=== PATIENT | female | born 1990 | race Caucasian/White ===

== ENCOUNTER 2020-11-19 15:30 | Emergency (ER) | payer OTHER, SELFPAY ==
[2020-11-19 15:38] VITALS: BP 132/79; PULSE 103; RESP 16; TEMP 36.7; O2SAT 98
--- NOTE | 2020-11-19 16:09 | ED.SKABFB ---
HPI - Skin/Abscess/Foreign Bdy General Chief complaint: Skin/Abscess/Foreign Body Stated complaint: abcess left leg and asthma issues Time Seen by Provider: 11/19/20 15:55 Source: patient Mode of arrival: ambulatory Limitations: no limitations History of Present Illness HPI narrative: Lesa Hou is a 30 yo female with a PMH of schizoaffective disorder and both heroin and methamphetamine drug addiction who comes to [facility] with an abscess on her left lower extremity lateral side abscess that has drained but still is indurated and painful. She states that she developed the abscess almost a week after last injection, drained but has not improved, and her feet hurt she has 2+ bilateral edema Related Data Home Medications Medication Instructions Recorded Confirmed cariprazine [Vraylar] 6 mg PO DAILY 11/19/20 11/19/20 Allergies Allergy/AdvReac Type Severity Reaction Status Date / Time No Known Allergies Allergy Verified 11/19/20 15:52 Review of Systems Review of Systems: Narrative: CONSTITUTIONAL: Denies fever, chills, sweats. EYES: Denies visual changes, redness, discharge. ENT: Denies rhinorrhea, congestion, sore throat, otalgia. CARDIOVASCULAR: Denies chest pain, palpitations, edema. RESPIRATORY: Denies dyspnea, wheezing, cough GASTROINTESTINAL: Denies abdominal pain, nausea, vomiting, diarrhea. GENITOURINARY: Denies dysuria, hematuria, abnormal discharge SKIN: Denies rash or itching. Multiple bruises and needle perez on bilateral legs top of feet antecubital area of both arms down the forearms back of hands, abscess on next lateral left lower extremity CONSTITUTIONAL: Denies fever, chills, sweats. EYES: Denies visual changes, redness, discharge. ENT: Denies rhinorrhea, congestion, sore throat, otalgia. CARDIOVASCULAR: Denies chest pain, palpitations, edema. RESPIRATORY: Denies dyspnea, wheezing, cough GASTROINTESTINAL: Denies abdominal pain, nausea, vomiting, diarrhea. GENITOURINARY: Denies dysuria, hematuria, abnormal discharge SKIN: Denies rash or itching. NEUROLOGIC: Denies numbness, or focal weakness. PSYCHIATRIC: Denies anxiety or depression. NEUROLOGIC: Denies numbness, or focal weakness. PSYCHIATRIC: Denies anxiety or depression. [facility] Past Medical History Medical History Asthma Drug addiction Schizoaffective disorder Family History Family History (Updated 11/19/20 @ 16:17 by Laney Martinez CNP) Other Hypertension Social History Social History (Updated 11/19/20 @ 16:17 by Laney Martinez CNP) Smoking packs per day: 0.5 Smoking cigarettes per day: 10.0 Smoking status: Current every day smoker Alcohol intake: never Substance use: current Substance use type: marijuana, heroin and amphetamines Comments At time of signature, I agree with nursing past medical, surgical, social and family history. There is no relevant family history pertinent to the presenting complaint. Exam Narrative: Exam Narrative: GENERAL: This is a well-nourished, well-developed patient, in mild distress. HEAD: normocephalic, atraumatic. EYES: PERRL. Sclera clear/white. Vision is grossly intact. EARS: External ears normal, auditory canals clear and without drainage, TMs normal without perforation. Hearing grossly intact. NOSE: External nose normal without nasal discharge, nares without redness, no rhinorrhea. THROAT: Mucous membranes moist, posterior pharynx NECK: Neck supple, non-tender CARDIOVASCULAR: Regular rate and rhythm without murmurs, gallops, or rubs. RESPIRATORY: Clear to auscultation. Breath sounds equal bilaterally. No wheezes, rales, or rhonchi. GASTROINTESTINAL: Abdomen soft, non-tender, SKIN: warm, intact with abscess on left lateral part lower leg, many track perez on both legs tops of both feet both antecubital area both forearms back of hands hands are puffy ankles are 2+ edema bilaterally; the abscess itself is been draining and
[2020-11-19] MEDS: LIDOCAINE HCL 1% LOCAL INJ 20 ML VIAL 2.1 ML IM (16:17)
[2020-11-19] MEDS: cefTRIAXone 1 GM VIAL IM (16:18)
== END 2020-11-19 16:40 | disposition home or self-care (01) ==
PROVIDERS: Emergency Provider Nurse Practitioner
DX: L02.416 Cutaneous abscess of left lower limb (principal); J45.20 Mild intermittent asthma, uncomplicated; F17.210 Nicotine dependence, cigarettes, uncomplicated; F20.9 Schizophrenia, unspecified
CPT/HCPCS: 96372; 99203; G0463; J0696

== ENCOUNTER 2022-01-06 08:54 | Emergency (ER) | payer OTHER, SELFPAY ==
[2022-01-06 08:59] VITALS: BP 136/85; PULSE 93; RESP 18; TEMP 36.4; O2SAT 100
--- NOTE | 2022-01-06 09:04 | ED.URI ---
HPI - URI/Sore Throat General Chief Complaint: Shortness of Breath/Dyspnea Stated Complaint: Shortness of Breath Time Seen by Provider: 01/06/22 09:08 Source: patient, RN notes reviewed and old records reviewed Mode of arrival: ambulatory Limitations: no limitations History of Present Illness HPI Narrative: 31-year-old female presents to the [facility] with complaints of shortness of breath yesterday. Patient reports a history of chronic bronchitis. Has an albuterol but has not used it. No symptoms today. Patient is a current smoker MD elicited complaint: cough Onset (ago): day(s) (1-2) Related Data Home Medications Medication Instructions Recorded Confirmed cariprazine 6 mg capsule (Vraylar) 6 mg PO DAILY 11/19/20 11/19/20 Allergies Allergy/AdvReac Type Severity Reaction Status Date / Time No Known Allergies Allergy Verified 11/19/20 15:52 Review of Systems Review of Systems: All systems reviewed & are unremarkable except as noted in HPI and below Constitutional: Constitutional: Reports no additional constitutional complaints, Denies chills and Denies fever(s) Eyes: Eyes: Reports no additional eye complaints ENT: Reports system reviewed and no additional complaints, except as documented Cardiovascular: Cardiovascular: Reports as per HPI and Reports chest pain (Chest) Respiratory: Respiratory: Reports as per HPI and Reports cough Gastrointestinal: Gastrointestinal: Reports no additional gastrointestinal complaints Musculoskeletal: Musculoskeletal: Reports no additional musculoskeletal complaints Integumentary/Breasts: Skin/Breast: Reports system reviewed and no additional complaints, except as docu Neurologic: Reports system reviewed and no additional complaints, except as documented Psychiatric: Psychiatric: Reports no additional psychiatric complaints Allergic/Immunologic: Allergic/Immunologic: Reports no additional allergic/immunologic complaints [facility] Past Medical History Medical History Asthma Drug addiction Schizoaffective disorder Family History Family History Other Hypertension Social History Social History Smoking packs per day: 0.5 Smoking cigarettes per day: 10.0 Smoking status: Current every day smoker Alcohol intake: never Substance use: current Substance use type: marijuana, heroin and amphetamines Comments At the time of my signature, I reviewed and agree with the nursing past medical, surgical, social, and family history. There is no relevant family history pertinent to the patient complaint. Exam Const: General: healthy appearing, no acute distress and alert Nutritional Appearance: well nourished Orientation/consciousness: patient oriented x3 Limitations: no limitations HENMT: Head: normal to inspection Ears: external ears normal, TM's normal bilaterally and EAC's normal Face and sinus: normal facial exam Mouth: Yes Normal oral and palatal mucosa present, Yes lip normal and Yes moist mucous membranes Throat: posterior oropharynx normal and uvula midline Eyes: General: appearance normal, both eyes and all related structures Pupils: Equal, round and reactive pupils present Neck: Neck: normal visual inspection, no lymphadenopathy and no meningeal signs Chest: Chest palpation & inspection: normal inspection of the chest Resp: Effort & Inspection: normal respiratory effort and no use of accessory muscles Auscultation: clear to auscultation bilaterally, no crackles, no rales, no rhonchi and no wheezes Cardio: Rate: regular rate Rhythm: regular rhythm Back/Spine/Pelvis: Cervical Spine: normal cervical lordosis Thoracic/Lumbar Spine: thoracic and lumbar spine normal to inspection Skin: General skin exam: normal color Rashes: no rashes Wounds: no wounds Neuro: General: patient
== END 2022-01-06 09:24 | disposition home or self-care (01) ==
PROVIDERS: Emergency Provider Nurse Practitioner
DX: R06.02 Shortness of breath (principal); F17.210 Nicotine dependence, cigarettes, uncomplicated; J45.909 Unspecified asthma, uncomplicated
CPT/HCPCS: 99213; G0463

== ENCOUNTER 2024-12-16 15:55 | Emergency (ER) | payer OTHER, SELFPAY ==
--- OUTSIDE RECORDS SUMMARY | 2024-12-16 15:58 | XMS_ITS ---
Author Organization Formerly [facility] Address [address] [place] [address] Care Team Providers Care Orientation & Mobility Specialist Name Role Phone Tien Johns Primary Care Provider Jennie Nunez Unavailable Norberto Meadows Unavailable [phone] REASON FOR VISIT Psych Evaluation Social History Sex Assigned At : Social History Observation Description Sex Assigned At Female Encounters Encounter Location Date Provider Diagnosis [address] [id number] 07/31/2024 Norberto Meadows Plan Of Treatment No Information Progress Notes * Lesa HOU JDOB:1990 (34 yo F)Acc No.[id number]:07/31/2024 UNLOCKED PROGRESS NOTE Patient: Lesa DENNEY Provider: Xavier Meadows DNP, PMYADIP-BC :1990 A ge:34 Y S ex:Female Date:07/31/2024 Address:[address] [place], [place] [id number] Pcp:Tien Johns Subjective: * Chief Complaints: * 1 . Psych Evaluation. * Medical History: Objective: * Vitals: Assessment: Plan: * Treatment: * * Electronic signature of Jhonatan Meadows APRN, [id number] on 12/16/2024 at 03:58 PM CDT Sign off status: Pending * Provider: Xavier Meadows DNP, PMHNP-BC Date: 0 07/31/2024 Generated for Ammy engle/Laurie/Courtney on: 0 12/16/2024 03:58 PM CDT
--- OUTSIDE RECORDS SUMMARY | 2024-12-16 15:58 | XMS_ITS | Clinical Summary ---
Author Organization [facility] Address [address] [place] [address] Phone Care Team Providers Care Manager In Training Name Role Phone Provider, None Primary Care Provider Unavailabl e Allergies No known active allergies Medications * This document contains information received from the source organization and may not represent a complete record from that organization. Cariprazine HCl (Vraylar) 3 MG Capsule Take 4 mg by mouth daily. Active chlordiazePOXID E (LIBRIUM) 10 MG CapsuleIndicati ons:Opioid withdrawal (HCC) Take 1 Capsule by mouth every 6 hours as needed for Anxiety or Withdrawal (Mild anxiety - subjective patient reported scale of 1-4). 20 Capsule 3 Active Additional Information Patient not taking.Reported on 11/17/2024 hydrOXYzine (ATARAX) 50 MG Tablet Take 1 Tablet by mouth every 6 hours as needed for Anxiety (Mild anxiety - patient reported scale of 1-4 (May be administered together with PRN Librium)). 90 Tablet 3 Active Additional Information Patient not taking.Reported on 11/17/2024 loperamide (IMODIUM) 2 MG Capsule Take 1 Capsule by mouth every 8 hours as needed for Diarrhea (give for continued diarrhea). 30 Capsule 3 Active Additional Information Patient not taking.Reported on 11/17/2024 nicotine (NICODERM CQ) 21 MG/24HR PATCH 24 HR 1 Patch by Transdermal route daily as needed for Other (Nicotine dependency). 30 Patch 3 Active Additional Information Patient not taking.Reported on 11/17/2024 senna 8.6 MG Tablet Take 2 Tablets by mouth nightly as needed for Constipation - 1st line. 30 Tablet 3 Active Additional Information Patient not taking.Reported on 11/17/2024 Neomycin-Bacitr acin-Polymyxin (triple antibiotic) 5-400-5000 Ointment Apply 2 times daily. 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 Date Type Department Care Team Description 11/17/2024 Travel from Last 3 Months Family History Medical History Relation Name Comments No Known Problems Father No Known Problems Mother Relation Name Status Comments Father Mother Social History Tobacco Use Types Packs/Day Years Used Date Smoking Tobacco: Every Day Cigarettes Smokeless Tobacco: Never Tobacco Cessation:Ready to Q uit: Not Asked; Counseling Given: Not Answered Alcohol Use Standard Drinks/Week Comments Not Currently 0 (1 standard drink = 0.6 oz pur e alcohol) Occasionally Social Connection and Isolation Panel Answer Date Recorded In a typical week, how many times do you talk on the phone with family, friends, or neighbors? More than three times a week 04/30/2023 How often do you get togethe r with friends or relatives? Three times a week 04/30/2023 How often do you attend chur or presybeterian services? Patient declined 04/30/2023 Do you belong to any clubs o r organizations such as buddhism groups, unions, fraternal or athletic groups, or school groups? Patient declined 04/30/2023 How often do you attend meet ings of the clubs or organizations you belong to? Patient declined 04/30/2023 Are you , , di vorced, , never , or living with a partner? Patient declined 04/30/2023 Housing Stability Vital Sign Answer Jae e Recorded In the last 12 months, was t here a time when you were not able to pay the mortgage or rent on time? Yes 04/30/2023 In the last 12 months, how many places have you lived? 7 04/30/2023 In the last 12 months, was t here a time when you did not have a steady place to sleep or slept in a senior care (including now)? Yes 04/30/2023 Social Connection and Isolation Panel Answer Date Recorded In a typical week, how many times do you talk on the phone with family, friends, or neighbors? Patient declined 11/17/2024 How often do you get togethe r with friends or relatives? Patient declined 11/17/2024 How often do you attend buddhism or presybeterian serv ices? Patient declined 11/17/2024 Do you belong to any clubs o r organizations such as buddhism groups, unions, fraternal or athletic groups, or school groups? Patient declined 11/17/2024 How often do you attend meet ings of the clubs or organizations you belong to? Patient declined 11/17/2024 Are you , , di vorced, , never , or living with a partner? Patient declined 11/17/2024 AUDIT-C Answer Date Recorded Q1: How often do you have a drink containing alc ohol? Patient declined 11/17/2024 Q2: How many drinks containi ng alcohol do you have on a typical day when you are drinking? Patient declined 11/17/2024 Q3: How often do you have si x or more drinks on one occasion? Patient declined 11/17/2024 Overall Financial Resource Strain (CARDIA) Answe r Date Recorded How hard is it for you to pa y for the very basics like food, housing, medical care, and heating? Patient declined 11/17/2024 [facility] [place] [facility] Occupat ional Health - Occupational Stress Questionnaire Answer Date Recorded Do you feel stress - tense, restless, nervous, or anxious, or unable to sleep at night because your mind is troubled all the time - these days? Patient declined 11/17/2024 Exercise Vital Sign Answer Date Recorde d On average, how many days pe r week do you engage in moderate to strenuous exercise (like a brisk walk)? Patient declined On average, how many minutes do you engage in exercise at this level? Patient declined 11/17/2024 Hunger Vital Sign Answer Date Recorded Within the past 12 months, y ou worried that your food would run out before you got the money to buy more. Patient declined Within the past 12 months, t he food you bought just didn't last and you didn't have money to get more. Patient declined 11/2024 PRAPARE - Transportation Answer Date Re corded In the past 12 months, has l ack of transportation kept you from medical appointments or from getting medications? Patient declined 11/17/2024 In the past 12 months, has l ack of transportation kept you from meetings, work, or from getting things needed for daily living? Patient declined 11/17/2024 Housing Stability Vital Sign Answer Jae e Recorded In the last 12 months, was t here a time when you were not able to pay the mortgage or rent on time? Patient declined 11/18/19 25 In the past 12 months, how m any times have you moved where you were living? 0 11/17/2024 At any time in the past 12 m [facility], were you homeless or living in a senior care (including now)? Patient declined 11/17/2024 [facility] Utilities Answer Date Recorded In the past 12 months has th e electric, gas, oil, or water company threatened to shut off services in your home? Patient declined 11/17/2024 Comments No Sex and Gender Information Value Date Recorded Sex Assigned at Not on file Legal Sex Female 9:46 PM CDT Gender Identity Not on file Sexual Orientation Not on file Last Filed Vital Signs Vital Sign Reading Time Taken Comments Blood Pressure 121/85 11/19/2024 10:16 AM CDT Pulse 65 11/19/2024 10:16 AM CDT Temperature 37.2 C (99 F) 11/19/2024 10:16 AM CDT Respiratory Rate 14 11/19/2024 10:16 AM CDT Oxygen Saturation 99% 11/19/2024 10:16 AM CDT Inhaled Oxygen Concentration - - Weight 51.9 kg (114 lb 6.4 oz) 11/17/2024 3:00 P M CDT Height 160 cm (5' 3) 11/17/2024 3:00 PM CDT Body Mass Index 20.27 11/17/2024 3:00 PM CDT Plan of Treatment Not on file Procedures Procedure Name Priority Date/Time Associated Diagnosis Comments RHYTHM STRIP 11/19/2024 12:00 AM CDT RHYTHM STRIP 11/19/2024 12:00 AM CDT UR TEST QUAL Routine 11/18/2024 6:08 AM CDT URINALYSIS (UA) MACROSCOPIC Routine 11/18/2024 6:08 AM CDT URINE DRUG SCREEN Routine 11/18/2024 6:0 8 AM CDT RHYTHM STRIP 11/18/2024 12:00 AM CDT RHYTHM STRIP 11/18/2024 12:00 AM CDT RHYTHM STRIP 11/18/2024 12:00 AM CDT EKG 12 LEAD Stat with Interpretation 11/17/2024 4:34 PM CDT CMP (COMPREHENSIVE METABOLIC PANEL) Routine 11/17/2024 4:19 PM CDT CBC WITH AUTO DIFFERENTIAL Routine 11/17/2024 4:18 PM CDT COMPLETE BLOOD COUNT (CBC) WITH DIFF Routine 11/17/2024 4:18 PM CDT RHYTHM STRIP 11/17/2024 12:00 AM CDT RHYTHM STRIP 11/17/2024 12:00 AM CDT EKG SCAN 11/17/2024 12:00 AM CDT from Last 3 Months Results * RHYTHM STRIP (11/19/2024 12:00 AM CDT) Only the most recent of7 resultswithin the time period is included. 11/19/2024 us Provider Scan IMG ECG ORDERABLES Final Result RESULTING AGENCY * (ABNORMAL) Urinalysis (Ua) Macroscopic (11/18/2024 6:08 AM CDT) SPECIFIC GRAVITY 1.015 1.003 - 1.030 11/18/2024 9:49 AM CDT [facility] URINE PH 7.0 5.0 - 9.0 11/18/2024 9:49 AM CDT [facility] WBC ESTERASE Negative Negative 11/18/2024 9:49 AM CDT [facility] NITRITE Negative Negative 11/18/2024 9:49 AM CDT [facility] PROTEIN, RANDOM URINE 15 mg/dL(A) Negative 11/18/2024 9:49 AM CDT [facility] URINE GLUCOSE, QUAL Negative Negative 11/18/2024 9:49 AM CDT [facility] URINE KETONES Negative Negative 11/18/2024 9:49 AM CDT [facility] UROBILINOGEN Normal Normal mg/dL 11/18/2024 9:49 AM CDT [facility] URINE BLOOD Negative Negative ruy/ul 11/18/2024 9:49 AM CDT [facility] URINALYSIS COLOR Yellow 11/19/19 9:49 AM CDT [facility] URINALYSIS CLARITY Slightly Cloudy 11/18/2024 9:49 AM CDT [facility] Urine Non-Phlebotomy Collection / Unknown 11/18/2024 6:08 AM CDT 11/18/2024 8:50 AM CDT Nick Johnson APRN, BRANDON URINE ORDERABLES Final Result [facility] [address] [place] [address] * Ur Test Qual (11/18/2024 6:08 AM CDT) PREG TEST,MONOCLONA L Negative 11/18/2024 6:22 AM CDT [facility] Urine Non-Phlebotomy Collection / Unknown 11/18/2024 6:08 AM CDT 11/18/2024 6:12 AM CDT us Nick Johnson RIGGING SUPERVISOR, CATH LAB RADIOLOGY TECHNICIAN URINE ORDERABLES Final Result [facility] [address] [place] [address] * (ABNORMAL) Urine Drug Screen (11/18/2024 6:08 AM CDT) UR AMPHETAMINE DETECTED(A) NON DETECTED 11/18/2024 6:31 AM CDT [facility] Comment: FOR MEDICAL USE ONLY. CUTOFF CONCENTRATION FOR DETECTED RESULT: AMPHETAMINE: 500 NG/ML UR BENZODIAZEPINES DETECTED(A) NON DETECTED 11/18/2024 6:31 AM CDT [facility] Comment: FOR MEDICAL USE ONLY. CUTOFF CONCENTRATION FOR DETECTED RESULT: BENZODIAZAPINE: 200 NG/ML UR COCAINE METABOLITE NON DETECTED NON DETECTED 11/18/2024 6:31 AM CDT [facility] Comment: FOR MEDICAL USE ONLY. CUTOFF CONCENTRATION FOR DETECTED RESULT: COCAINE: 150 NG/ML UR OPIATES NON DETECTED NON DETECTED 11/18/2024 6:31 AM CDT [facility] Comment: FOR MEDICAL USE ONLY. CUTOFF CONCENTRATION FOR DETECTED RESULT: OPIATES: 300 NG/ML UR PHENCYCLIDINE NON DETECTED NON DETECTED 11/18/2024 6:31 AM CDT [facility] Comment: FOR MEDICAL USE ONLY. CUTOFF CONCENTRATION FOR DETECTED RESULT: PCP: 25 NG/ML UR CANNABINOID DETECTED(A) NON DETECTED 11/18/2024 6:31 AM CDT [facility] Comment: FOR MEDICAL USE ONLY. CUTOFF CONCENTRATION FOR DETECTED RESULT: THC (MARIJUANA): 50 NG/ML UR BARBITURATE NON DETECTED NON DETECTED 11/18/2024 6:31 AM CDT [facility] Comment: FOR MEDICAL USE ONLY. CUTOFF CONCENTRATION FOR DETECTED RESULT: BARBITUATES: 200 NG/ML UR FENTANYL DETECTED(A) NON DETECTED 11/18/2024 6:31 AM CDT [facility] Comment: FOR MEDICAL USE ONLY. CUTOFF CONCENTRATION FOR DETECTED RESULT: FENTANYL: 1.0 NG/ML Urine Non-Phlebotomy Collection / Unknown 11/18/2024 6:08 AM CDT 11/18/2024 6:12 AM CDT Nick Johnson APRN, CNP URINE ORDERABLES Final Result [facility] [address] [facility] [place] [address] * EKG 12 LEAD (11/17/2024 4:34 PM CDT) Ventricular Rate 62 BPM EXTERNAL EKG Atrial Rate 62 BPM EXTERNAL EKG P-R Interval 124 ms EXTERNAL EKG QRS Duration 86 ms EXTERNAL EKG Q-T Duration 452 ms EXTERNAL EKG QTC CALCULATION 458 ms EXTERNAL EKG P [place] -14 degrees EXTERNAL EKG R [place] 33 degrees EXTERNAL EKG T [place] 8 degrees EXTERNAL EKG 11/17/2024 4:34 PM CDT Impressions EXTERNAL EKG - 11/18/2024 4:37 PM CDT Normal sinus rhythm Poor R-wave progression ; consider septal infarct, lead placement, or normal variant Abnormal ECG When compared with ECG of 22-DEC-2022 13:29, No significant change was found Confirmed by RONALD MAHONEY ([id number]) on 11/18/2024 4:36:59 PM Narrative Procedure Note Ronald Mahoney MD - 11/18/2024 IMPRESSION: Normal sinus rhythm Poor R-wave progression ; consider septal infarct, lead placement, ornormal variant Abnormal ECG When compared with ECG of 22-DEC-2022 13:29, No significant change was found Confirmed by RONALD MAHONEY ([id number]) on 11/18/2024 4:36:59 PM Nick Johnson APRN, CNP IMG ECG ORDERABLES Jaye l Result EXTERNAL EKG * (ABNORMAL) CMP (Comprehensive Metabolic Panel) (11/17/2024 4:19 PM CDT) SODIUM 138 136 - 145 mmol/L 11/17/2024 4:56 PM CDT [facility] POTASSIUM 4.2 3.5 - 5.1 mmol/L 11/17/2024 4:56 PM CDT [facility] CHLORIDE 108(H) 98 - 107 mmol/L 11/17/2024 4:56 PM CDT [facility] CO2, VENOUS 23 22 - 30 mmol/L 11/17/2024 4:56 PM CDT [facility] ANION GAP 11.2 <18.0 mmol/L 11/17/2024 4:56 PM CDT [facility] GLUCOSE 128(H) 70 - 99 mg/dL 11/17/2024 4:56 PM CDT [facility] BUN 13 5 - 18 mg/dL 11/17/2024 4:56 PM CDT [facility] CREATININE, BLOOD 0.71 0.60 - 1.00 mg/dL 11/17/2024 4:56 PM CDT [facility] BUN/CREATININE RATIO 18 12 - 20 ratio 11/17/2024 4:56 PM CDT [facility] TOTAL PROTEIN 7.0 6.0 - 8.0 g/dL 11/17/2024 4:56 PM CDT [facility] ALBUMIN 3.9 3.5 - 5.0 g/dL 11/17/2024 4:56 PM CDT [facility] A/G RATIO 1.3 1.0 - 2.2 11/17/2024 4:56 PM CDT [facility] CALCIUM 8.5(L) 8.7 - 10.5 mg/dL 11/17/2024 4:56 PM CDT [facility] T BILI 0.6 0.2 - 1.2 mg/dL 11/17/2024 4:56 PM CDT [facility] SGOT (AST) 49(H) <43 U/L 11/17/2024 4:56 PM CDT [facility] SGPT (ALT) 54 <56 U/L 11/17/2024 4:56 PM CDT [facility] ALKALINE PHOSPHATASE 69 40 - 150 U/L 11/17/2024 4:56 PM CDT [facility] GFR, ESTIMATED >60 >=60 11/17/2024 4:56 PM CDT [facility] Comment: Creatinine Clearance is the preferred criteria for selecting drug dose adjustments in renally impaired patients. The GFR is provided as additional pertinent clinical information. GFR is reported in mL/min/1.73 sq m. Calculation based on the Chronic Kidney Disease Epidemiology Collaboration (CKD- EPI) equation refit without adjustment for race. GFR, EST. >60 >=60 025 4:56 PM CDT [facility] GFR, EST. NONAFRICAN >60 >=60 11/17/2024 4:56 PM CDT [facility] Blood Venipuncture / Unknown 11/17/2024 4:19 PM CDT 11/17/2024 4:30 PM CDT us Nick Johnson APRN, CATH LAB RADIOLOGY TECHNICIAN CHEMISTRY ORDERABLES Fi nal Result [facility] [address] [place] [address] * (ABNORMAL) CBC with Auto Differential (11/17/2024 4:18 PM CDT) WBC 4.59 4.00 - 12.00 10(3)/mcL 11/17/2024 4:55 PM CDT [facility] RBC 4.05 3.80 - 5.30 10(6)/mcL 11/17/2024 4:55 PM CDT [facility] HEMOGLOBIN (HGB) 12.7 12.0 - 15.8 g/dL 11/17/2024 4:55 PM CDT [facility] HEMATOCRIT (HCT) 37.5 36.0 - 47.0 % 11/17/2024 4:55 PM CDT [facility] MCV 92.6 82.0 - 96.0 fL 11/17/2024 4:55 PM CDT [facility] MCH 31.4 26.0 - 34.0 pg 11/17/2024 4:55 PM CDT [facility] MCHC 33.9 31.0 - 36.0 g/dL 11/17/2024 4:55 PM CDT [facility] PLATELET COUNT 170 140 - 440 10(3)/mcL 11/17/2024 4:55 PM CDT [facility] RDW 12.5 11.8 - 15.5 % 11/17/2024 4:55 PM CDT [facility] MPV 10.8 9.7 - 12.4 fL 11/17/2024 4:55 PM CDT [facility] NEUTROPHILS 56.6 47.0 - 73.0 % 11/17/2024 4:55 PM CDT [facility] LYMPHOCYTES 33.6 18.0 - 42.0 % 11/17/2024 4:55 PM CDT [facility] MONOCYTES 7.4 4.0 - 12.0 % 11/17/2024 4:55 PM CDT [facility] EOSINOPHILS 1.1 0.0 - 5.0 % 11/17/2024 4:55 PM CDT [facility] BASOPHILS 1.1(H) 0.0 - 1.0 % 11/17/2024 4:55 PM CDT [facility] IMMATURE GRANULOCYTE 0.2 0.0 - 0.4 % 11/17/2024 4:55 PM CDT [facility] Comment:Immature Granulocyte s includes Metamyelocytes, Myelocytes, and Promyelocytes. ABSOLUTE NEUTROPHILS 2.60 1.60 - 7.70 10(3)/mcL 11/17/2024 4:55 PM CDT [facility] ABSOLUTE LYMPHOCYTES 1.54 1.30 - 3.20 10(3)/mcL 11/17/2024 4:55 PM CDT [facility] ABSOLUTE MONOCYTES 0.34 0.20 - 1.00 10(3)/mcL 11/17/2024 4:55 PM CDT [facility] ABSOLUTE EOSINOPHIL 0.05 0.00 - 0.40 10(3)/mcL 11/17/2024 4:55 PM CDT [facility] ABSOLUTE BASOPHILS 0.05 0.00 - 0.10 10(3)/mcL 11/17/2024 4:55 PM CDT [facility] ABSOLUTE IMMATURE GRANULOCYTE 0.01 0.00 - 0.03 10 (3) mcL. 11/17/2024 4:55 PM CDT [facility] NRBC PER 100 WBC 0 11/18/19 4:55 PM CDT [facility] RESULTS ARE CONSISTENT WITH PERIPHERAL SMEAR REVIEW Yes 11/17/2024 4:55 PM CDT [facility] Blood Venipuncture / Unknown 11/17/2024 4:18 PM CDT 11/17/2024 4:30 PM CDT us Nick Johnson RIGGING SUPERVISOR, CATH LAB RADIOLOGY TECHNICIAN HEMATOLOGY ORDERABLES F inal Result Performing Organization Address [facility] Co de Phone Number [facility] [address] [place] [address] * EKG SCAN (11/17/2024 12:00 AM CDT) 11/17/2024 us Provider Scan IMG ECG ORDERABLES Final Result Performing Organization Address [facility] Co de Phone Number RESULTING AGENCY from Last 3 Months Insurance Advance Directives * Full Code (Latest Code Status on File) Date Activated Date Inactivated Comments 04/30/2023 1:53 PM 04/30/2023 7:00 PM CPR-Full T reatment: FULL ARREST: Attempt Resuscitation/CPR wit intubation and mechanical ventilation. PRE-ARREST: Use entire range of life support measures to stabilize the patient. * Full Code Date Activated Date Inactivated Comments 12/22/2022 10:53 AM 12/25/2022 5:56 PM CPR-Full Tr eatment: FULL ARREST: Attempt Resuscitation/CPR wit intubation and mechanical ventilation. PRE-ARREST: Use entire range of life support measures to stabilize the patient. Care Teams Manager In Training Relationship Specialty Start Date End Date Provider, None [place] PCP - General 06/29/19
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
--- OUTSIDE RECORDS SUMMARY | 2024-12-16 15:58 | XMS_ITS | Referral Summary ---
Author Organization [facility] Address [address] [place] [address] Care Team Providers Care Slasher Tender Name Role Phone No, Physician Primary Care Provider Verna Schulz Unavailable Unavailable Nick Rivera MD Unavailable Allergies Active Allergy Reactions Criticality Noted Date Comments Acetaminophen-Codeine Itching Reaction: ITCHING Medications buprenorphine-na loxone (SUBOXONE) 8-[address] 1 Film under the tongue 2 (two) times a day for 6 doses 6 Film 09/05/2024 Active Active Problems Problem Noted Date Diagnosed Date Abscess 09/01/2024 Chronic hepatitis C virus infection 05/07/2022 Assessment & Plan (05/07/2022 8:24 PM TITLE PROCESSOR): Start lab testing and US liver and preparation to start treatment. Follow up 4 months after completing treatment for 12 weeks. Amenorrhea 04/27/2022 Anxiety 04/27/2022 Gastroesophageal reflux disease 04/27/2022 Insomnia 04/27/2022 Obesity 04/27/2022 Opioid dependence in remission 04/27/2022 Major depression, single episode 08/31/2020 Nicotine dependence, unspecified, uncomplicated 08/31/2020 Opioid use disorder 08/31/2020 Schizoaffective disorder, bipolar type Opioid withdrawal 08/08/2020 Social History Tobacco Use Types Packs/Day Years Used Date Smoking Tobacco: Every Day Cigarettes Smokeless Tobacco: Never Tobacco Cessation:Ready to Q uit: Not Asked; Counseling Given: Not Answered Comments:Smoking History Packs/day: 15 Packs Alcohol Use Standard Drinks/Week Comments No 0 (1 standard drink = 0.6 oz pur e alcohol) [facility] Utilities Answer Date Recorded In the past 12 months has th e electric, gas, oil, or water company threatened to shut off services in your home? No 09/02/2024 Social Connection and Isolation Panel [NHANES] A nswer Date Recorded In a typical week, how many times do you talk on the phone with family, friends, or neighbors? Twice a week 09/02/2024 How often do you get together with friends or re latives? Once a week 09/02/2024 How often do you attend hindu or jainism serv ices? Never 09/02/2024 Do you belong to any clubs o r organizations such as hindu groups, unions, fraternal or athletic groups, or school groups? No 09/02/2024 How often do you attend meet ings of the clubs or organizations you belong to? Never 09/02/2024 Are you , , di vorced, , never , or living with a partner? 09/02/2024 Overall Financial Resource Strain (CARDIA) Answe r Date Recorded How hard is it for you to pa y for the very basics like food, housing, medical care, and heating? Somewhat hard 09/02/2024 Hunger Vital Sign Answer Date Recorded Within the past 12 months, y ou worried that your food would run out before you got the money to buy more. Sometimes true Within the past 12 months, t he food you bought just didn't last and you didn't have money to get more. Sometimes true PRAPARE - Transportation Answer Date Re corded In the past 12 months, has l ack of transportation kept you from medical appointments or from getting medications? No 08/13 In the past 12 months, has l ack of transportation kept you from meetings, work, or from getting things needed for daily living? No 09/02/2024 Housing Stability Vital Sign Answer Jae e Recorded In the last 12 months, was t here a time when you were not able to pay the mortgage or rent on time? No 09/02/2024 In the past 12 months, how m any times have you moved where you were living? 0 09/02/2024 At any time in the past 12 m [facility], were you homeless or living in a fdc (including now)? No 09/02/2024 Personal Safety Answer Date Recorded Have you ever been in or are you currently in a harmful physical or emotional relationship or is someone making you feel afraid or unsafe? Denies 09/01/2024 Comments No Sex and Gender Information Value Date Recorded Sex Assigned at Not on file Legal Sex Female 1:57 AM TITLE PROCESSOR Gender Identity Not on file Sexual Orientation Not on file Last Filed Vital Signs Vital Sign Reading Time Taken Comments Blood Pressure 107/67 09/05/2024 7:29 AM CDT Pulse 73 09/05/2024 7:29 AM CDT Temperature 36.3 C (97.4 F) 09/05/2024 7:29 AM CDT Respiratory Rate 20 09/05/2024 7:29 AM CDT Oxygen Saturation 97% 09/05/2024 7:29 AM CDT Inhaled Oxygen Concentration - - Weight 60 kg (132 lb 4.4 oz) 09/01/2024 9:01 AM CDT Height 160 cm (5' 3) 09/01/2024 10:20 AM CDT Body Mass Index 23.43 09/01/2024 9:01 AM CDT Plan of Treatment Not on file Procedures Procedure Name Priority Date/Time Associated Diagnosis Comments HEPATITIS C RNA, QUANTITATIVE, PCR Routine 04/27/2022 10:34 AM TITLE PROCESSOR Acute hepatitis C virus infection without hepatic coma from Last 3 Months or Most Recently Relevant to Health Maintenance Results * (ABNORMAL) Hepatitis C (HCV) RNA PCR, quantitative (04/27/2022 10:34 AM TITLE PROCESSOR) HCV RNA result Detected( A) [facility]ACE [facility]O (EVELIN) Comment: The quantifiable range of this assay is 15 IU/mL to 100,000,000 IU/mL (1.18 log IU/mL to 8.00 log IU/mL). Testing was performed by the [facility] 6800 HCV Test ([employer] Testing performed at [facility] Current Interpretive Data was last revised on 2020 Testing performed by: [facility] [place] [address] [place] [address] HCV RNA IU/mL 713,000 IUnits/mL GRACE COELLO (EVELIN) Comment:Testing performed by : [facility] [place], [address] [place]., [address] HCV RNA log IU/mL 5.85 log IUnits/mL GRACE COELLO (EVELIN) Comment:Testing performed by : [facility] [place], [address] [facility], [address] Blood 04/27/2022 10:3 4 AM TITLE PROCESSOR 04/27/2022 8:13 PM TITLE PROCESSOR Randell Enriquez MD LAB MICROBIOLOGY - GENERAL ORDERABLES Final Result GRACE [facility]O (EVELIN) [address] [facility] Department [place] [address] from Last 3 Months or Most Recently Relevant to Health Maintenance Insurance [facility] Advance Directives For more information, please contact: [phone] * Full Code (Latest Code Status on File) Date Activated Date Inactivated Comments 09/01/2024 8:09 AM 09/05/2024 10:46 PM Care Teams Slasher Tender Relationship Specialty Start Date End Date No, Physician PCP - General 10/17/19 Verna Schulz Route Sales Associate Addiction Medicine 08/08/20 Nick Rivera MD [address] [place] [address] Consulting Physician General Surgery 09/05/24
--- OUTSIDE RECORDS SUMMARY | 2024-12-16 15:58 | XMS_ITS ---
Author Organization [facility] Address [address] [place] [address] Care Team Providers Care Processor Grain Name Role Phone Tien Johns Primary Care Provider Jnenie Nunez Unavailable Jenny Rodas Unavailable [phone] REASON FOR VISIT New Patient Psych Eval Medications Medication SIG (Take, Route, Frequency, Duration) [...] dissolve Sublingual twice a day 06/07/2023 Active Social History Sex Assigned At : Social History Observation Description Sex Assigned At Female Encounters Encounter Location Date Provider Diagnosis [address] [address] 09/10/2024 Jenny Rodas Plan Of Treatment No Information Progress Notes * Lesa HOUDOB:1990 (34 yo F)Acc No.[id number]:09/10/2024 UNLOCKED PROGRESS NOTE Patient: Lesa DENNEY Xavier Provider: CASI Becker :1990 A ge:34 Y S ex:Female Date:09/10/2024 Address:[address] [place], [place] [id number] Pcp:Tien Johns Subjective: * Chief Complaints: * 1 . New Patient Psych Eval. * Medical History: O pioid use disorder, Substance use disorder, Asthma. * Surgical History: o ral surgery . * Hospitalization/Major Diagno stic Procedure: c hild 2013, [facility] admittance August 2020 . * Family History: F ather: alive, Healthy. M other: alive, Healthy. 1 brother(s) , 4 sister(s) - healthy. 1 daughter(s) - healthy. . FAMILY MENTAL HEALTH HISTORY- - Mom: depression Dad: unknown FAMILY MEDICAL HISTORY- Dad: denies Mom: denies. * Social History: P rimary Social History: L iving Arrangement L iving Arrangement: I ndependent Living, I s this a supportive environment? N o. A lcohol Use A lcohol Use Frequency: M onthly or less. I llicit Substance Usage I llicit Substance Usage: Y es, S ubstance Used: Fentanyl .?Employment Status E mployment Status: U nemployed. T obacco Use - do not use T obacco Use: S tatus Reviewed with Patient 1/2 pack daily, T obacco Use Status Reviewed on: 07/28/2021. * Medications: T aking Gabapentin 300 MG Capsule TAKE ONE CAPSULE BY MOUTH THREE TIMES DAILY , Taking Buprenorphine HCl-Naloxone HCl 4-1 MG Film 1 film under the tongue and allow to dissolve Sublingual twice a day , Taking cloNIDine HCl 0.1 MG Tablet TAKE 1 TABLET BY MOUTH TWICE DAILY Orally , Taking Gabapentin 300 MG Tablet 1 capsule Orally three times daily , Taking Vraylar 3 MG Capsule TAKE 1 CAPSULE BY MOUTH EVERY DAY Objective: * Vitals: Assessment: Plan: * Treatment: * * Electronic signature of Emely Rodas on 12/16/2024 at 03:58 PM CDT Sign off status: Pending * Provider: Ann Rodas APRN-C Date: 0 09/10/2024 Generated for Ammy engle/Laurie/Courtney on: 0 12/16/2024 03:58 PM CDT
--- OUTSIDE RECORDS SUMMARY | 2024-12-16 15:58 | XMS_ITS | Clinical Summary ---
Author Organization [facility] Address [address] [place] [address] Care Team Providers Care Calcine Furnace Tender Name Role Phone No, Physician Primary Care Provider [phone] Verna Schulz Unavailable Unavailable Nick Rivera MD [...] 05/07/2022 Assessment & Plan (05/07/2022 8:24 PM HHA): Start lab testing and US liver and preparation to start treatment. Follow up 4 months after completing treatment for 12 weeks. Amenorrhea 04/27/2022 Anxiety 04/27/2022 Gastroesophageal reflux disease 04/27/2022 Insomnia 04/27/2022 Obesity 04/27/2022 Opioid dependence in remission 04/27/2022 Major depression, single episode 08/31/2020 Nicotine dependence, unspecified, uncomplicated 08/31/2020 Opioid use disorder 08/31/2020 Schizoaffective disorder, bipolar type Opioid withdrawal 08/08/2020 Medical History Medical History Date Comments Anxiety Schizoaffective disorder (HCC) Smoker Polysubstance (excluding opioids) dependence (HC C) Cellulitis of upper back excluding scapular lisandro on Right upper back Hepatitis C Family History Medical History Relation Name Comments Cancer Other Family history of Cancer; Relation Name Status Comments Other Social History Tobacco Use Types Packs/Day Years Used Date Smoking Tobacco: Every Day Cigarettes Smokeless Tobacco: Never Tobacco Cessation:Ready to Q uit: Not Asked; Counseling Given: Not Answered Comments:Smoking History Packs/day: 15 Packs Alcohol Use Standard Drinks/Week Comments No 0 (1 standard drink = 0.6 oz pur e alcohol) [facility] Utilities Answer Date Recorded In the past 12 months has e [email or web address], gas, oil, or water [employer] Payment threatened to shut off services in your home? No 09/02/2024 Social Connection and Isolation Panel [NHANES] A nswer Date Recorded In a typical week, how many times do you talk on the phone with family, friends, or neighbors? Twice a week 09/02/2024 How often do you get together with friends or re latives? Once a week 09/02/2024 How often do you attend evangelical or mormonism serv ices? Never 09/02/2024 Do you belong to any clubs o r organizations such as evangelical groups, unions, fraternal or athletic groups, or [...] any time in the past 12 m [facility], were you homeless or living in a custodial (including now)? No 09/02/2024 Personal Safety Answer Date Recorded Have you ever been in or are you currently in a harmful physical or emotional relationship or is someone making you feel afraid or unsafe? Denies 09/01/2024 Comments No Sex and Gender Information Value Date Recorded Sex Assigned at Not on file Legal Sex Female 1:57 AM HHA Gender Identity Not on file Sexual Orientation Not on file Obstetrics History Para Term AB IAB SAB Ectopic Multiple Livin g Live Births 1 1 Date Outcome GA Total Labor Labor/2nd/3rd Weight Sex Type Anes PTL Beverly A1 A5 Name Clin Para Last Filed Vital Signs Vital Sign Reading [...] 09/01/2024 9:01 AM CDT Plan of Treatment Health Maintenance Due Date Last Done Comments Cervical Cancer Screening 1989 Depression Screening 1989 DTaP/Tdap/Td Vaccine (1 - Tdap) 2000 Varicella Vaccines (1 of 2 - 13+ 2-dose series) 2002 Regular Well Visit/Exam 18-64 2007 Pneumococcal vaccine <65 (1 of 2 - PCV) 2008 HPV Vaccines (1 - 3-dose SCD M series) 2016 Covid-19 Vaccine (2023-2 5 season) 2024 10/14/2020, 09/09/2020 Influenza Vaccine (#1) 2025 Hepatitis B Screening Completed 04/27/2022 Hepatitis C Screening Completed 05/07/2022 , 04/27/2022, 04/27/2022, Additional history exists Procedures Procedure Name Priority Date/Time Associated Diagnosis Comments HEPATITIS C RNA, QUANTITATIVE, PCR Routine 04/27/2022 10:34 AM HHA Acute hepatitis C virus infection without hepatic coma from Last 3 Months or Most Recently Relevant to Health Maintenance Results * (ABNORMAL) Hepatitis C (HCV) RNA PCR, quantitative (04/27/2022 10:34 AM HHA) HCV RNA result Detected( A) [facility] ([place]) Comment: The quantifiable range of this assay is 15 IU/mL to 100,000,000 IU/mL (1.18 log IU/mL to 8.00 log IU/mL). Testing was performed by the [facility] 6800 HCV Test ([employer] Testing performed at [facility] Current Interpretive Data was last revised on 2020 Testing performed by: [facility], [address] [place]., [address] HCV RNA IU/mL 713,000 IUnits/mL [facility]ACE [facility]ELLO ([place]EL[place]) Comment:Testing performed by : [facility], [address] [place]., [address] HCV RNA log IU/mL 5.85 log IUnits/mL [facility] ([place]) Comment:Testing performed by : [facility], [address] [place]., [address] Blood 04/27/2022 10:3 4 AM HHA 04/27/2022 8:13 PM HHA us Randell Enriquez MD LAB MICROBIOLOGY - GENERAL ORDERABLES Final Result [facility] ([place]) [address] [facility] Department [place] [address] from Last 3 Months or Most Recently Relevant to Health Maintenance Insurance [id number] [place] [address] Advance Directives For more information, please contact: [phone] * Full Code (Latest Code Status on File) Date Activated Date Inactivated Comments 09/01/2024 8:09 AM 09/05/2024 10:46 PM Care Teams Calcine Furnace Tender Relationship Specialty Start Date End Date No, Physician PCP - General 10/17/19 Verna Schulz Technical Sales Consultant Addiction Medicine 08/08/20 Nick Rivera MD [address] [place] [address] DR JEROME [address] [place] [id number] Consulting Physician General Surgery 09/05/24
[2024-12-16 16:02] VITALS: BP 113/72; PULSE 85; RESP 16; TEMP 36.4; O2SAT 100
--- NOTE | 2024-12-16 16:07 | ED.EAR ---
HPI - Ear Problem General Chief complaint: Urogenital-Female Stated complaint: left ear Source: patient Mode of arrival: ambulatory Limitations: no limitations History of Present Illness HPI Narrative: 34 y/o female presented with c/o left ear pressure x2 weeks. Says pain radiates into the left jaw. Also concerned for a cockroach in the ear due to living conditions. Pt denies tinnitus, dizziness, ear drainage, n/v/d/f/c. Pt also reports bilateral flank pain and frequent urination. Requesting test for UTI. Pt current IVDA, plans to go to rehab. Complaint: ear pain Related Data Allergies Allergy/AdvReac Type Severity Reaction Status Date / Time No Known Allergies Allergy Verified 12/16/24 16:09 Review of Systems Review of Systems: CONSTITUTIONAL: Denies malaise, chills, or fever. EYES: Denies visual changes, redness, or discharge. ENT: Denies rhinorrhea, congestion, sinus pain, and sore throat. Reports ear pain CARDIOVASCULAR: Denies chest pain, palpitations, or edema. RESPIRATORY: Denies cough or dyspnea. GASTROINTESTINAL: Denies abdominal pain, nausea, vomiting, diarrhea SKIN: Denies rash or itching. MUSCULOSKELETAL: Denies myalgia. NEUROLOGIC: Denies headache. All systems reviewed & are unremarkable except as noted in HPI and below PMFSH Past Medical History Medical History Asthma Drug addiction Schizoaffective disorder Family History Family History Other Hypertension Social History Social History Smoking packs per day: 0.5 Smoking cigarettes per day: 10.0 Smoking status: Current every day smoker Alcohol intake: never Substance use: current Substance use type: marijuana, heroin and amphetamines Comments At time of signature, agree with nursing past medical, surgical, social and family history. There is no relevant family history pertinent to the presenting complaint Exam Narrative: GENERAL: Well-appearing, in no acute distress. EYES: conjunctivae clear ENT: Nares clear. Mucous membranes moist. Bilateral TMs normal light reflex, canal not erythematous, no drainage, no tragal tenderness. Oropharynx not erythematous without lesions. No gum swelling or tenderness. no drooling, no hoarseness, no trismus, uvula midline. NECK: Supple. No lymphadenopathy CHEST: Clear to auscultation, breath sounds equal. No wheezing, rhonchi, rales, or stridor. No respiratory distress, speaks in full sentences. HEART: Regular rate and rhythm. No murmur heard. SKIN: Warm, dry, ashen color, track perez to BUEs NEURO: Alert and oriented x3. PSYCH: Normal mood and affect Course Course Emergency Course: Patient is aware of diagnosis, understands and agrees to treatment plan. Anticipatory guidance given. Patient agrees to follow-up as directed and is aware of reasons to seek care at the emergency department. Portions of this record may have been created with voice recognition software Level of Care: Express Care Visit Vital Signs Vital signs: Vital Signs Temperature 97.5 F L 12/16/24 16:02 Pulse Rate 85 12/16/24 16:02 Respiratory Rate 16 12/16/24 16:02 Blood Pressure 113/72 12/16/24 16:02 Pulse Oximetry 100 12/16/24 16:02 Oxygen Delivery Room Air 12/16/24 16:02 Temperature 97.5 F L 12/16/24 16:02 Pulse Rate 85 12/16/24 16:02 Respiratory Rate 16 12/16/24 16:02 Blood Pressure 113/72 12/16/24 16:02 Pulse Oximetry 100 12/16/24 16:02 Oxygen Delivery Room Air 12/16/24 16:02 Reviewed Medical Decision Making MDM Narrative Medical decision making narrative: Discussed physical exam findings, no otitis media or foreign body noted. Patient is stating she plans to go to drug rehab soon and is trying to be healthy year, she is requesting prescription for a vitamin. Advised supportive measures and signs/symptoms to go to the ER. Patient is appropriate for outpatient treatment and follow-up. Differential Diagnosis Differential Diagnosis: Coronavirus, strep pharyngitis, allergic rhinitis, upper respiratory tract infection, sinusitis, rhinosinusitis, nasopharyngitis, viral pharyngitis, otitis media, otitis externa, eustachian tube dysfunction, foreign body, cerumen impaction. Vital Signs Vital Signs: Vital Signs Temperature 97.5 F L 12/16/24 16:02 Pulse Rate 85 12/16/24 16:02 Respiratory Rate 16 12/16/24 16:02 Blood Pressure 113/72 12/16/24 16:02 Pulse Oximetry 100 12/16/24 16:02 Oxygen Delivery Room Air 12/16/24 16:02 Temperature 97.5 F L 12/16/24 16:02 Pulse Rate 85 12/16/24 16:02 Respiratory Rate 16 12/16/24 16:02 Blood Pressure 113/72 12/16/24 16:02 Pulse Oximetry 100 12/16/24 16:02 Oxygen Delivery Room Air 12/16/24 16:02 Lab Data Labs: Lab Results 12/16/24 Range/Units 16:14 POC Urine Color Yellow POC Urine Clarity Cloudy POC Urine pH 6.0 POC Ur Specif Amity 1.030 POC Urine Protein Negative (Negative) POC Ur Glucose (UA) Negative (Negative) POC Urine Ketones Negative (Negative) POC Urine Blood Negative (Negative) POC Urine Nitrite Negative (Negative) POC Urine Bilirubin Negative (Negative) POC Urine Urobilinogen 0.2 POC U Leukocyte Esteras Negative (Negative) Discharge Plan Discharge Clinical Impression: Otalgia of left ear Patient Disposition: Home Condition: Stable Instructions: Antibiotic Form, Earache (ED) Additional Instructions: motrin or Tylenol every 8 hours as needed to reduce fever, pain Please schedule a follow-up visit with your personal physician If your symptoms persist, change or worsen significantly, go to the emergency department for further evaluation. Patient Language: Jordanian Prescriptions: New ibuprofen 400 mg tablet 400 mg PO TID PRN (Reason: pain) Qty: 30 0RF acetaminophen 500 mg tablet 500 mg PO QID PRN (Reason: fever or pain) Qty: 30 0RF Women's Daily Multivitamin 18-400 mg-mcg tablet 1 tablet PO DAILY Qty: 60 0RF Follow-up/Referrals: PHYSICIAN,MANAGER ASSET MANAGEMENT [Primary Care Provider] - Time of Disposition: 16:30
[2024-12-16 16:22] LABS: EDUAAPPEAR Cloudy; EDUABILI Negative (Negative); EDUABLOOD Negative (Negative); EDUACOLOR1 Yellow; EDUAGLUCOSE Negative (Negative); EDUAKETONE Negative (Negative); EDUALEUKO Negative (Negative); EDUANITRATE Negative (Negative); EDUAPH 6.0; EDUAPROTEIN Negative (Negative); EDUASPGRAVITY 1.030; EDUAUROBILI 0.2
== END 2024-12-16 16:31 | disposition home or self-care (01) ==
PROVIDERS: Emergency Provider Nurse Practitioner Family
DX: H92.02 Otalgia, left ear (principal); J45.909 Unspecified asthma, uncomplicated
CPT/HCPCS: 81003; 87086; 99213; G0463